=== PATIENT | female | born 1960 | race American Indian/Alaskan Native ===

== ENCOUNTER 2021-03-08 17:06 | Inpatient (IN) | payer MEDICAID ==
[2021-03-08] MEDS ORDERED: ASPIRIN 81 MG TAB CHEW PO ONE (19:25)
[2021-03-08 19:54] LABS: Basophils % (Auto) 0.6 % (0.0-1.8); Eosinophils % (Auto) 0.3 % (0.0-4.3); Hematocrit 39.6 % (30.3-42.9); Hemoglobin 13.5 gm/dl (10.1-14.3); Lymphocytes # (Auto) 1.6 K/mm3 (1.2-5.4); Lymphocytes % (Auto) 31.9 % (13.4-35.0); Mean Corpuscular HGB Conc 34 % (30-34); Mean Corpuscular Volume 93 fl (79-97); Monocytes # (Auto) 0.3 K/mm3 (0.0-0.8); Monocytes % (Auto) 6.2 % (0.0-7.3); Platelet Count 218 K/mm3 (140-440); Red Blood Count 4.28 M/mm3 (3.65-5.03); Red Cell Distribution Width 12.8 % (13.2-15.2)
[2021-03-08] MEDS ORDERED: MECLIZINE 25 MG TAB PO ONE (19:59)
[2021-03-08] MEDS ORDERED: SODIUM CHLORIDE 0.9% 1000 ML 1,000 ML IV ONE (19:59)
--- NOTE | 2021-03-08 20:03 | XRay Report ---
CHEST 2 VIEWS INDICATION / CLINICAL INFORMATION: Dizziness. COMPARISON: None available. FINDINGS: SUPPORT DEVICES: None. HEART / MEDIASTINUM: The heart size and pulmonary vasculature are normal. The aorta is normal in jessica miroslava. LUNGS / PLEURA: No significant pulmonary or pleural abnormality. No pneumothorax. ADDITIONAL FINDINGS: No significant additional findings. IMPRESSION: No acute findings. Signer Name: Cecil Enlge MD Signed: 03/08/2021 7:59 PM Workstation Name: [id number]
--- NOTE | 2021-03-08 20:04 | Emergency Department Report ---
ED General Adult HPI - General Chief complaint: Dizziness Stated complaint: HIGH BLOOD LIGHT HEADED DIZZY Time Seen by Provider: 03/08/21 19:20 Source: patient Mode of arrival: Wheelchair Limitations: No Limitations - History of Present Illness Initial comments: 60-year-old female patient with history of stroke and hypertension presents to the emergency department with complaints of dizziness starting today. Patient states the dizziness is intermittent, without exacerbating or relieving factors. Describes the dizziness as "feeling off-balance." The patient's granddaughter states that she has been using a wheelchair as needed since she suffered a stroke a few years ago. Today, patient has been more dependent on her wheelchair than usual. There have been no recent falls. Patient is not anticoagulated. States she has been eating and drinking normally. No known history of prior CT. No recent medication changes. Denies headache, seizure, syncope, chest pain, shortness of breath, palpitations, nausea, vomiting, diarrhea, lower extremity pain/swelling. Denies all other complaints at this time. - Related Data Allergies Allergy/AdvReac Type Severity Reaction Status Date / Time No Known Allergies Allergy Unverified 03/08/21 17:29 ED Review of Systems ROS: Stated complaint: HIGH BLOOD LIGHT HEADED DIZZY Other details as noted in HPI Other: GENERAL: Negative for fever, chills, weight change, anorexia, fatigue. ENT: Negative for ear pain, difficulty hearing, sore throat, nasal congestion, epistaxis. CARDIOVASCULAR: Negative for chest pain, palpitations, lower extremity swelling. PULMONARY: Negative for cough, dyspnea, wheezing, orthopnea, cyanosis. GASTROINTESTINAL: Negative for abdominal pain, nausea, vomiting, diarrhea, constipation. MUSCULOSKELETAL: Negative for joint pain, joint swelling, myalgias, back pain, neck pain. NEUROLOGICAL: Positive for dizziness. INTEGUMENTARY: Negative for erythema, rash, diaphoresis, laceration, ecchymosis. HEMATOLOGICAL: Negative for hemoptysis, hematemesis, hematochezia, hematuria. PSYCHIATRIC: Negative for hallucinations, suicidal ideation, homicidal ideation, anxiety, depression. ED Past Medical Hx - Past Medical History Previous Medical History?: Yes Hx Hypertension: Yes - Surgical History Past Surgical History?: No ED Physical Exam - General Limitations: No Limitations - Other Other exam information: General: Awake and alert. No acute distress. Head: Atraumatic, normocephalic. Eyes: EOMI. Pupils are equal and round, reactive to light, no nystagmus. Left eye deviates to the left, granddaughter states this is consistent with her baseline since her stroke. Normal sclera and conjunctiva. ENT: Oral mucosa is moist. Normal pharyngeal exam. Neck: Supple. No lymphadenopathy. Pulmonary: No respiratory distress. Clear to auscultation bilaterally. Cardiac: Regular rate and rhythm. Pulses are palpable and equal bilaterally. No lower extremity cyanosis or edema. Skin: Warm and dry. No rashes. Abdomen: Soft, non-tender, non-protuberant. No guarding, rigidity, or rebound. Bowel sounds are normal. No organomegaly or masses noted. Back: Normal alignment. No CVA tenderness. Extremities: Symmetrical. Full range of motion intact. Neurological: Alert and oriented, appropriately interactive, no focal deficits. Strength and sensation intact throughout. Oriented to person and place. Not oriented to time, unable to identify the month or year; granddaughter states "this is not something she usually keeps track of." Cranial nerves II through XII intact. Cerebellar finger-nose exam intact. Psych: Cooperative. Appropriate mood and affect. Speech is evenly metered. Thoughts are logically construed. ED Course Vital Signs 03/08/21 03/08/21 03/08/21 17:23 23:22 23:24 Temperature 98.4 F 98.3 F Pulse Rate 91 H 75 Pulse Rate [ 75 Lying] Respiratory 16 16 Rate Blood Pressure 168/98 Blood Pressure 149/82 [Lying] Blood Pressure 149/82 [Right] O2 Sat by Pulse 98 99 Oximetry ED Medical Decision Making - Lab Data Result diagrams: 03/08/21 19:31 03/08/21 19:31 - EKG Data 03/08/21 20:05 EKG shows normal sinus rhythm with a ventricular rate of 90 bpm. Normal axis. Normal CO interval. Normal QT interval. Good R wave progression. Lateral T wave inversion noted to aVL. No ST segment changes. Over read by attending emergency physician, who agrees with this interpretation. - Radiology Data [facility] [address] [place] [address] Cat Scan Report Signed Patient: JOSEPH TILLMAN MR#: [id number] : 1960 Acct:[id number] Age/Sex: 60 / F ADM Date: 03/08/21 Loc: ED Attending Dr: Ordering Physician: SAWYER HERNANDEZ Date of Service: 03/08/21 Procedure(s): CT head/brain wo con Accession Number(s): [id number] cc: SAWYER HERNANDEZ CT head without contrast HISTORY: dizziness/weakness/hx prior stroke. TECHNIQUE: Axial imaging performed from the skull apex through the skull base without the use of contrast. All CT scans at this location are performed using CT dose reduction for ALARA by means of automated exposure control. COMPARISON: None FINDINGS: Parenchyma: No acute intracranial hemorrhage or parenchymal abnormality. Periventricular hypodensities are likely in keeping with microangiopathy. Ventricles: There is mild diffuse brain atrophy with commensurate ventricular enlargement which is likely age appropriate. Soft tissues: Soft tissues including the orbits appear normal. Bones: No acute osseous abnormality. Sinuses: Sinuses and mastoid air cells are clear. IMPRESSION: No acute abnormality. Signer Name: Zachary Thornton MD Signed: 03/08/2021 10:06 PM Workstation Name: [id number] Transcribed By: BIN Dictated By: Zachary Thornton MD Electronically Authenticated By: Zachary Thornton MD Signed Date/Time: 03/08/212205 DD/ 04 TD/TT: - Medical Decision Making Differential diagnosis including but not limited to: stroke, intracranial hemorrhage, dehydration, electrode abnormality, hypoglycemia, anemia, urinary tract infection, orthostatic hypotension, peripheral vertigo, central vertigo Patient presents to the emergency department with complaints of dizziness starting today. She is afebrile and hemodynamically stable. She is unable to correctly identify the month or year. She has been more dependent on her wheelchair today than her baseline, per granddaughter. Patient was previously diagnosed with a stroke but is not currently on antiplatelet therapy or statins. There has been no recent trauma or fall. CT the head shows periventricular hypodensities, microangiopathy, and mild diffuse brain atrophy with ventricular enlargement. Laboratory evaluation is grossly unremarkable. No nystagmus, vomiting, vision changes, or cerebellar exam deficits to suggest acute vertebrobasilar artery occlusion. Dizziness and generalized weakness have been present for over 12 hours. Given the patient's history and questionable changes in mental status, patient will be admitted to the hospitalist service for further neurological evaluation including stroke work-up. Case discussed with hospitalist, who agrees to admit. Patient and granddaughter expressed understanding and are agreeable to plan of care. Critical care attestation.: If time is entered above; I have spent that time in minutes in the direct care of this critically ill patient, excluding procedure time. ED Disposition Clinical Impression: Dizziness, Generalized weakness, History of stroke Disposition: -09 OP ADMIT IP TO THIS HOSP Is pt being admited?: Yes Does the pt Need Aspirin: Yes Condition: Stable Time of Disposition: 00:00
[2021-03-08 20:06] LABS: Alanine Aminotransferase 10 units/L (7-56); Albumin 4.5 g/dL (3.9-5); BUN/Creatinine Ratio 11; Blood Urea Nitrogen 10 mg/dL (7-17); Calcium 9.4 mg/dL (8.4-10.2); Hemolysis Index 9
[2021-03-08 20:07] LABS: INR 1.02 (0.87-1.13)
[2021-03-08 20:08] LABS: Partial Thromboplastin Time 29.4 Sec. (24.2-36.6)
--- NOTE | 2021-03-08 22:11 | Cat Scan Report ---
CT head without contrast HISTORY: dizziness/weakness/hx prior stroke. TECHNIQUE: Axial imaging performed from the skull apex through the skull base without the use of con trast. All CT scans at this location are performed using CT dose reduction for ALARA by means of aut omated exposure control. COMPARISON: None FINDINGS: Parenchyma: No acute intracranial hemorrhage or parenchymal abnormality. Periventricular hypodensiti es are likely in keeping with microangiopathy. Ventricles: There is mild diffuse brain atrophy with commensurate ventricular enlargement which is l ikely age appropriate. Soft tissues: Soft tissues including the orbits appear normal. Bones: No acute osseous abnormality. Sinuses: Sinuses and mastoid air cells are clear. IMPRESSION: No acute abnormality. Signer Name: Zachary Thornton MD Signed: 03/08/2021 10:06 PM Workstation Name: [id number]
[2021-03-08 23:09] LABS: Bilirubin,Urine NEG (Negative); Blood,Urine NEG (Negative); Color,Urine Yellow (Yellow); Mucus,Urine FEW /HPF; Protein,Urine <15 mg/dL mg/dL (Negative); Urobilinogen,Urine < 2.0 mg/dL (<2.0)
--- NOTE | 2021-03-09 00:47 | History and Physical Report ---
History of Present Illness Date of examination: 03/09/21 Date of admission: 03/09/21 Chief complaint: AMS History of present illness: 60-year-old female patient with history of stroke and hypertension presents to the emergency department with complaints of dizziness starting today. Patient states the dizziness is intermittent, without exacerbating or relieving factors. Describes the dizziness as "feeling off-balance." The patient's granddaughter states that she has been using a wheelchair as needed since she suffered a stroke a few years ago. Today, patient has been more dependent on her wheelchair than usual. There have been no recent falls. Patient is not anticoagulated. States she has been eating and drinking normally. No known history of prior MT. No recent medication changes. Denies headache, seizure, syncope, chest pain, shortness of breath, palpitations, nausea, vomiting, diarrhea, lower extremity pain/swelling. Denies all other complaints at this time. ED work-up WBC 5.1, hemoglobin 13.5, platelets 218, sodium 141, potassium 3.6, c reatinine 0.9, and serum glucose 113. CT of the head done no acute finding checks x-ray done no acute finding. Patient seen in ED at bedside with granddaughter present. Patient reported dizziness weakness that has worsened but not in acute distress. Patient has a history of CVA with mild left facial drooping likely secondary to residual from CVA. Patient granddaughter said patient is weaker than she usually is and she feels dizzy and decided came to the hospital. I reviewed patient medication record, lab values, and vital signs. Echocardiogram, carotid ultrasound, and MRI of the brain ordered. Past History Past Medical History: hypertension, stroke Past Surgical History: No surgical history Social history: lives with family Family history: no significant family history Medications and Allergies Allergies Allergy/AdvReac Type Severity Reaction Status Date / Time No Known Allergies Allergy Unverified 03/08/21 17:29 Home Medications Medication Instructions Recorded Confirmed Last Taken Type amLODIPine 10 mg PO DAILY 03/09/21 03/09/21 Unknown History lisinopriL [Lisinopril] 20 mg PO DAILY 03/09/21 03/09/21 Unknown History Review of Systems Constitutional: weakness Ears, nose, mouth and throat: no epistaxis, no bleeding gums Gastrointestinal: no melena Integumentary: no pruritis, no redness, no blisters Psychiatric: confusion Hematologic/Lymphatic: no easy bruising, no easy bleeding Allergic/Immunologic: no urticaria Exam - Constitutional Vitals: Temp Pulse Resp BP Pulse Ox 98.3 F 75 16 149/82 99 03/08/21 23:24 03/08/21 23:24 03/08/21 23:24 03/08/21 23:24 03/08/21 23:24 General appearance: Present: no acute distress, well-nourished - EENT Eyes: Present: PERRL ENT: hearing intact, clear oral mucosa - Neck Neck: Present: supple, normal ROM - Respiratory Respiratory effort: normal Respiratory: bilateral: CTA - Cardiovascular Heart Sounds: Present: S1 & S2. Absent: rub, click - Extremities Extremities: pulses symmetrical, No edema Peripheral Pulses: within normal limits - Abdominal General gastrointestinal: Present: soft, non-tender, non-distended, normal bowel sounds Female genitourinary: Present: normal - Integumentary Integumentary: Present: clear, warm, dry - Musculoskeletal Musculoskeletal: gait normal, strength equal bilaterally - Psychiatric Psychiatric: appropriate mood/affect, intact judgment & insight - Neurologic Neurologic: CNII-XII intact, moves all extremities - Allied Health Allied health notes reviewed: nursing HEART Score - HEART Score Troponin: Troponin T < 0.010 ng/mL (0.00-0.029) 03/08/21 23:25 Results - Labs CBC & Chem 7: 03/08/21 19:31 03/08/21 19:31 Labs: Abnormal lab results 03/08/21 03/08/21 Range/Units 19:31 19:31 RDW 12.8 L (13.2-15.2) % Glucose 113 H (65-100) mg/dL Assessment and Plan - Patient Problems (1) Dizziness Current Visit: Yes Status: Acute Plan to address problem: Safety and fall precaution at all time Echocardiogram ordered follow-up with report Carotid ultrasound, MRI of the brain ordered PT OT consult (2) Generalized weakness Current Visit: Yes Status: Acute Plan to address problem: PT OT on consult follow-up with recommendation (3) History of stroke Current Visit: Yes Status: Acute Plan to address problem: History of CVA with left face weakness Continue antiplatelet and statin (4) Acute encephalopathy Current Visit: Yes Status: Acute Plan to address problem: ? cause Patient with Hx of CVA CT of the head no acute finding Check MRI-f/u with result (5) DVT prophylaxis Current Visit: Yes Status: Acute Plan to address problem: Lovenox
[2021-03-09] MEDS ORDERED: ONDANSETRON 4 MG/2 ML INJ IV PRN ×2 (00:52→01:00)
[2021-03-09] MEDS ORDERED: MORPHINE 2 MG/1 ML INJ IV PRN ×2 (00:52→01:00)
[2021-03-09] MEDS ORDERED: ACETAMINOPHEN 325 MG TAB PO PRN ×2 (00:52→01:00)
[2021-03-09] MEDS ORDERED: MAGNESIUM HYDROXIDE (MOM) ORAL LIQD UDC PO PRN (00:52)
[2021-03-09] MEDS ORDERED: METOCLOPRAMIDE 10 MG/2 ML INJ IV PRN (00:52)
[2021-03-09] MEDS ORDERED: ALUM-MAG HYDROXIDE-SIMETHICONE 200-200-20MG/5ML ORAL LIQD 30 ML PO PRN (00:52)
[2021-03-09] MEDS ORDERED: oxyCODONE /ACETAMINOPHEN 5-325MG TAB PO PRN (01:00)
[2021-03-09] MEDS ORDERED: hydrALAZINE 20 MG/1 ML INJ IV PRN ×3 (01:06→13:00)
[2021-03-09] MEDS: SODIUM CHLORIDE 0.9% 1000 ML 1,000 ML IV SCH (05:08)
[2021-03-09] MEDS: LISINOPRIL 20 MG TAB PO SCH (11:32)
[2021-03-09] MEDS: ENOXAPARIN 40 MG/0.4 ML INJ SUB-Q SCH (11:33)
[2021-03-09] MEDS: ASPIRIN EC 81 MG TAB PO SCH (11:33)
[2021-03-09] MEDS: SENNOSIDES 8.6 MG TAB PO SCH (11:33)
[2021-03-09] MEDS: amLODIPine 10 MG TAB PO SCH (11:34)
--- NOTE | 2021-03-09 16:00 | Event Note ---
Date: 03/09/21 patient seen and examined Patient still complains of dizziness Vitals noted and stable S1-S2 positive, clear to auscultate bilaterally, no lower extremity edema Tolerating diet 60-year-old female patient with history of stroke and hypertension presents to the emergency department with complaints of dizziness ED work-up WBC 5.1, hemoglobin 13.5, platelets 218, sodium 141, potassium 3.6, creatinine 0.9, and serum glucose 113. CT of the head done no acute finding checks x-ray done no acute finding. Patient has a history of CVA with mild left facial drooping likely secondary to residual from CVA. Patient admitted for stroke workup Echocardiogram, carotid ultrasound, and MRI of the brain ordered. Pending MRI brain study, cont current Mx and care --It took me about 28 minutes to reevaluate and reasses this patient, discussed with RN/CM, review medical documents, lab results, imaging, medication list and placing order.
[2021-03-09] MEDS ORDERED: PRAVASTATIN 20 MG TAB PO SCH (22:00)
[2021-03-10] MEDS: SODIUM CHLORIDE 0.9% 1000 ML 1,000 ML IV SCH (03:08)
[2021-03-10 08:49] LABS: Alanine Aminotransferase 6 units/L (7-56); Albumin 3.5 g/dL (3.9-5)
[2021-03-10 08:51] LABS: Bilirubin,Direct < 0.2 mg/dL (0-0.2)
--- NOTE | 2021-03-10 09:06 | Vascular Lab Report ---
"DUPLEX DOPPLER ULTRASOUND CAROTID, BILATERAL INDICATION / CLINICAL INFORMATION: dizziness. COMPARISON: None available. FINDINGS: RIGHT CAROTID: - PLAQUE ESTIMATE (%): < 50% - CCA velocity: 112 cm/sec. - ICA peak systolic velocity: 120 cm/sec. - ICA/CCA PSV Ratio: 1.3 Right Vertebral Artery: Antegrade flow. LEFT CAROTID: - PLAQUE ESTIMATE: < 50% - CCA velocity: 103 cm/sec. - ICA peak systolic velocity: 108 cm/sec. - ICA/CCA PSV Ratio: 1.1 Left Vertebral Artery: Antegrade flow. IMPRESSION: 1. Right Internal Carotid Artery: Less than 50% diameter stenosis. 2. Left Internal Carotid Artery: Less than 50% diameter stenosis. Velocity criteria are extrapolated from diameter data as defined by the Society of Radiologists in [facility] Consensus Conference, Radiology 2003; 229;340-346. Degree of || ICA PSV || Plaque || ICA/CCA Stenosis (%) || (cm/sec) || estimate (%) || PSV Ratio Normal ............. || ...<125........... || ...None......... || ...<2.0 <50................... || ...<125........... || ......<50......... || ...<2.0 50-69................ || ..125-230...... || ......>50......... || 2.0-4.0 >70 but <100... || >230.............. || .......>50........ || ...>4.0 Near occlusion || High/low/none || ...visible....... || variable Total occlusion || ....None........... || ..no lumen... || ....N/A Signer Name: Jay Means MD Signed: 03/10/2021 9:02 AM Workstation Name: [id number]"
--- NOTE | 2021-03-10 09:40 | Magnetic Resonance Report ---
MR brain wo con INDICATION / CLINICAL INFORMATION: 60 years Female; AMS, dizziness. TECHNIQUE: Multiplanar, multisequence MR images of the brain were obtained. COMPARISON: The study is compared to the earlier CT head of 03/08/2021. FINDINGS: BRAIN / INTRACRANIAL CONTENTS: There is extensive cerebral white matter disease which is nonspecific though may reflect microvascular angiopathy, advanced for the patient's age. The diffusion imaging re veals no evidence of acute infarction. There are foci of decreased signal within the cerebellum, most notable on the susceptibility weighted imaging and greater on the right measuring 6 mm. The findings would be indicative of chronic microhemorrhages. There is mild cerebral and cerebellar atrophy with associated prominence of the ventricular system. N o extra-axial fluid collections or significant mass effect is identified. 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 Mod erate to white matter changes are seen at within the bernard and left cerebellum. CRANIOCERVICAL JUNCTION: No significant abnormality. VASCULAR FLOW-VOIDS: No significant abnormality. ORBITS: No significant abnormality of visualized orbits. SINUSES / MASTOIDS: No significant abnormality in the visualized paranasal sinuses or mastoid air migel ls. ADDITIONAL FINDINGS: None. IMPRESSION: 1. There is extensive microvascular angiopathy as detailed above without evidence of acute infarction . Signer Name: Oscar Cline MD Signed: 03/10/2021 9:35 AM Workstation Name: [id number]
[2021-03-10] MEDS: ENOXAPARIN 40 MG/0.4 ML INJ SUB-Q SCH (10:24)
[2021-03-10] MEDS: SENNOSIDES 8.6 MG TAB PO SCH (10:24)
[2021-03-10] MEDS: LISINOPRIL 20 MG TAB PO SCH (10:24)
[2021-03-10] MEDS: ASPIRIN EC 81 MG TAB PO SCH (10:24)
[2021-03-10] MEDS: amLODIPine 10 MG TAB PO SCH (10:24)
--- NOTE | 2021-03-10 11:47 | Consultation ---
History of Present Illness Consult date: 03/10/21 Reason for Consult: Dizziness History of present illness: AMS History of present illness: 60-year-old female patient with history of stroke and hypertension presents to the emergency department with complaints of dizziness starting X2 days ago , Patient states the dizziness is intermittent, without exacerbating or relieving factors. Describes the dizziness as "feeling off-balance."get worse with standing up and walking , no dizziness while she is in bed , no hx of similar nature , no hx of vertigo no nausea no vomiting pt. is a very bad historian she is some what confused she is with significant memory difficulty The patient's granddaughter states that she has been using a wheelchair as needed since she suffered a stroke a few years ago. Today, patient has been more dependent on her wheelchair than usual. There have been no recent falls. pt. lives with her daughter , she is with hx of BP takes medications States she has been eating and drinking normally. No known history of prior MS. No recent medication changes. Denies headache, seizure, syncope, chest pain, shortness of breath, palpitations, nausea, vomiting, diarrhea, lower extremity pain/swelling. Denies all other complaints at this time. ED work-up WBC 5.1, hemoglobin 13.5, platelets 218, sodium 141, potassium 3.6, creatinine 0.9, and serum glucose 113. CT of the head done no acute finding checks x-ray done no acute finding. Patient seen in ED at bedside with granddaughter present. Patient reported dizziness weakness that has worsened but not in acute distress. Patient has a history of CVA with mild left facial drooping likely secondary to residual from CVA. Patient granddaughter said patient is weaker than she usually is and she feels dizzy and decided came to the hospital. I reviewed patient medication record, lab values, and vital signs. Echocardiogram, carotid ultrasound, and MRI of the brain ordered. Past History Past Medical History: hypertension, stroke Past Surgical History: No surgical history Social history: lives with family Family history: no significant family history Medications and Allergies Allergies Allergy/AdvReac Type Severity Reaction Status Date / Time No Known Allergies Allergy Unverified 03/08/21 17:29 Home Medications Medication Instructions Recorded Confirmed Last Taken Type amLODIPine 10 mg PO DAILY 03/09/21 03/09/21 Unknown History lisinopriL [Lisinopril] 20 mg PO DAILY 03/09/21 03/09/21 Unknown History Review of Systems Constitutional: weakness Ears, nose, mouth and throat: no epistaxis, no bleeding gums Gastrointestinal: no melena Integumentary: no pruritis, no redness, no blisters Psychiatric: confusion Hematologic/Lymphatic: no easy bruising, no easy bleeding Allergic/Immunologic: no urticaria Past History Past Medical History: hypertension, stroke Past Surgical History: No surgical history Social history: lives with family Family history: no significant family history Medications and Allergies Allergies Allergy/AdvReac Type Severity Reaction Status Date / Time No Known Allergies Allergy Unverified 03/08/21 17:29 Home Medications Medication Instructions Recorded Confirmed Last Taken Type amLODIPine 10 mg PO DAILY 03/09/21 03/09/21 Unknown History lisinopriL [Lisinopril] 20 mg PO DAILY 03/09/21 03/09/21 Unknown History Active Meds: Active Medications Acetaminophen (Acetaminophen 325 Mg Tab) 650 mg PO Q4H PRN PRN Reason: Pain MILD(1-3)/Fever >100.5/MCCARTY Al Hydrox/Mg Hydrox/Simethicone (Alum-Mag Hydroxide-Simethicone [phone]/5ml Oral Liqd 30 Ml) 30 ml PO Q4H PRN PRN Reason: Indigestion Amlodipine Besylate (Amlodipine 10 Mg Tab) 10 mg PO QDAY [facility] Last Admin: 03/10/21 10:24 Dose: 10 mg Documented by: Aspirin (Aspirin Ec 81 Mg Tab) 81 mg PO QDAY [facility] Last Admin: 03/10/21 10:24 Dose: 81 mg Documented by: Enoxaparin Sodium (Enoxaparin 40 Mg/0.4 Ml Inj) 40 mg SUB-Q DAILY [facility]; Protocol Last Admin: 03/10/21 10:24 Dose: 40 mg Documented by: Hydralazine HCl (Hydralazine 20 Mg/1 Ml Inj) 10 mg IV Q4H PRN PRN Reason: Hypertension Last Admin: 03/09/21 12:45 Dose: 10 mg Documented by: Sodium Chloride (Nacl 0.9% 1000 Ml) 1,000 mls @ 42 mls/hr IV DIRECT AYDE Last Admin: 03/10/21 03:08 Dose: 42 mls/hr Documented by: Lisinopril (Lisinopril 20 Mg Tab) 20 mg PO QDAY [facility] Last Admin: 03/10/21 10:24 Dose: 20 mg Documented by: Magnesium Hydroxide (Magnesium Hydroxide (Mom) Oral Liqd Udc) 30 ml PO Q4H PRN PRN Reason: Constipation Metoclopramide HCl (Metoclopramide 10 Mg/2 Ml Inj) 10 mg IV Q6H PRN PRN Reason: Nausea And Vomiting Last Admin: 03/09/21 11:29 Dose: 10 mg Documented by: Morphine Sulfate (Morphine 2 Mg/1 Ml Inj) 2 mg IV Q4H PRN PRN Reason: Pain, Moderate (4-6) Ondansetron HCl (Ondansetron 4 Mg/2 Ml Inj) 4 mg IV Q8H PRN PRN Reason: Nausea And Vomiting Oxycodone/Acetaminophen (Oxycodone /Acetaminophen 5-325mg Tab) 1 tab PO Q6H PRN PRN Reason: Pain, Moderate (4-6) Pravastatin Sodium (Pravastatin 20 Mg Tab) 20 mg PO QHS [facility] Last Admin: 03/09/21 22:56 Dose: 20 mg Documented by: Senna (Sennosides 8.6 Mg Tab) 8.6 mg PO DAILY [facility] Last Admin: 03/10/21 10:24 Dose: 8.6 mg Documented by: Sodium Chloride (Sodium Chloride 0.9% 10 Ml Flush Syringe) 10 ml IV BID [facility] Last Admin: 03/10/21 10:25 Dose: 10 ml Documented by: Sodium Chloride (Sodium Chloride 0.9% 10 Ml Flush Syringe) 10 ml IV PRN PRN PRN Reason: LINE FLUSH Last Admin: 03/09/21 11:32 Dose: 10 ml Documented by: Physical Examination - Vital Signs Vital Signs: Vital Signs Temp Pulse Resp BP Pulse Ox 98.4 F 91 H 16 168/98 98 03/08/21 17:23 03/08/21 17:23 03/08/21 17:23 03/08/21 17:23 03/08/21 17:23 - Constitutional General appearance: comfortable - EENT EENT: Present: PERRL, mucous membranes moist - Respiratory Respiratory: Present: chest non-tender, lungs clear - Cardiovascular Cardiovascular: Present: regular rate, normal S1, normal S2 Extremities: Present: no peripheral edema bilatateraly, no clubbing, cyanosis - Gastrointestinal Gastrointestinal: Present: normoactive bowel sounds - Integumentary Integumentary: Present: normal - Neurologic Cranial nerve examination: PERRL, EOMI, intact Speech examination: intact Sensorimotor examination: intact Detailed motor examination: grossly full strength in Cerebellar examination: other (she is alert sluggish to answear question d isoriented to place and date , does not knows the president name , knows her birthdate but had difficulty with her age , can not remmeber her address ) Results - Laboratory Findings CBC and BMP: 03/08/21 19:31 03/08/21 19:31 Abnormal Lab Findings: Abnormal Labs 03/08/21 03/08/21 03/10/21 19:31 19:31 07:43 RDW 12.8 L Glucose 113 H ALT 6 L Total Protein 5.4 L D Albumin 3.5 L Assessment and Plan Assessment and Plan - Patient Problems # Dizziness -this is 60 ys old femal complains of being dizzy unsteady on ambulation on going for the last two days , she denied fall -findings from Hx and exam is suggestive of possible orthostatic and or fluctuating BP -No sign of CVA no focal weakness is appreciated -CT/MRI brain are unremarkable ,no acute event is noted -US carotid is unremarkable -Echo showed EF#60-65% -check for orthostatic changes is pending -cardiac monitering # Generalized weakness -PT/ OT on consult follow-up with recommendation # Hypertension -BP at time 180/99 possible hypertensive emergency -? compling with medication -confusion -maintain BP <150/80 # History of stroke -History of CVA with no significant focal weakness is appreciated -confusion /dementia -Continue antiplatelet and statin -LDL -ESR,AUGUSTINA ,VDRL -UDS # Acute encephalopathy/ underlying significant dementia !!! -Patient with Hx of CVA -CT/MRI brain of the head no acute finding - DVT prophylaxis -Lovenox will follow
--- NOTE | 2021-03-10 14:01 | Discharge Summary ---
Providers - Providers Date of Admission: 03/10/21 08:27 Date of discharge: 03/10/21 Attending physician: VIRGILIO RAMIREZ 03/09/21 00:52 Occupational Therapy Evaluate and Treat [CONS] Routine Comment: Reason For Exam: Neuro deficits Physical Therapy Evaluation and Treat [CONS] Routine Comment: Reason For Exam: Neuro deficits 03/10/21 10:48 Consult to Physician [CONS] Routine Comment: Consulting Provider: FLORENTIN REYES Physician Instructions: Reason For Exam: dizziness Primary care physician: DATA PROGRAMMER Hospitalization Condition: Stable Pertinent studies: CXR head CT Carotid doppler Brain MRI 2d echocardiogram Hospital course: 60-year-old female patient with history of stroke and hypertension presents to the emergency department with complaints of dizziness ED work-up WBC 5.1, hemoglobin 13.5, platelets 218, sodium 141, potassium 3.6, creatinine 0.9, and serum glucose 113. CT of the head done no acute finding checks x-ray done no acute finding. Patient has a history of CVA with mild left facial drooping likely secondary to residual from CVA. Patient admitted for stroke workup Echocardiogram, carotid ultrasound, and MRI of the brain ordered. MRI showed no acute CVA, 2D echocardiogram showed preserved EF, carotid ultrasound showed no significant stenosis Patient noted to have uncontrolled hypertension and BP medications were adjusted Patient also assess for orthostatic hypotension but findings were normal Neurology was consulted and recommended further outpatient follow-up with cardiac monitoring Patient was then discharged home in stable condition with outpatient follow-up after PT clearance. Disposition: [id number] HOME UNDER HOME [facility] Final Discharge Diagnosis (Prints w/discharge instructions): --Dizziness likely due to uncontrolled blood pressure. --Generalized weakness. --Hypertension, uncontrolled. --History of CVA. --Encephalopathy likely due to underlying significant dementia Time spent for discharge: 34 minutes Core Measure Documentation - Palliative Care Palliative Care/ Comfort Measures: Not Applicable - Core Measures Any of the following diagnoses?: history only Exam - Physical Exam Narrative exam: General appearance: comfortable - EENT EENT: Present: PERRL, mucous membranes moist - Respiratory Respiratory: Present: chest non-tender, lungs clear - Cardiovascular Cardiovascular: Present: regular rate, normal S1, normal S2 Extremities: Present: no peripheral edema bilatateraly, no clubbing, cyanosis - Gastrointestinal Gastrointestinal: Present: normoactive bowel sounds - Integumentary Integumentary: Present: normal - Neurologic Cranial nerve examination: PERRL, EOMI, intact Speech examination: intact Sensorimotor examination: intact Detailed motor examination: grossly full strength in Cerebellar examination: other (she is alert sluggish to answear question disoriented to place and date , does not knows the president name , knows her birthdate but had difficulty with her age , can not remmeber her address ) - Constitutional Vitals: Temp Pulse Resp BP Pulse Ox 98.3 F 71 18 146/76 99 03/10/21 11:12 03/10/21 11:12 03/10/21 11:12 03/10/21 11:12 03/10/21 11:12 Plan Activity: fall precautions Weight Bearing Status: Weight Bear as Tolerated Diet: other (pureed diet) Special Instructions: record daily BP diary Follow up with: PRIMARY CARE, [Primary Care Provider] - 3-5 Days PAN FOSTRE MD [Staff Physician] - 7 Days Prescriptions: Pravastatin [Pravachol] 20 mg PO QHS #30 tablet amLODIPine 10 mg PO QDAY #30 tablet Aspirin EC [Halfprin EC] 81 mg PO QDAY #30 tablet lisinopriL [Zestril TAB] 20 mg PO QDAY #30 tablet
--- NOTE | 2021-03-10 16:40 | Magnetic Resonance Report ---
MR MRA/MRV head wo con INDICATION / CLINICAL INFORMATION: multiCVA. TECHNIQUE: MRA of the head. 3-D/MIP reformats postprocessed. Percentage stenosis is determined by direct quantit ative measurements of distal internal carotid artery diameter compared with normal reference segments or by criteria similar to NASCET where applicable. COMPARISON: MRI brain 03/10/2021 FINDINGS: MRA HEAD: Intracranial vertebral arteries: No occlusion or significant stenosis. Basilar artery: No occlusion or significant stenosis. Posterior cerebral arteries: No occlusion or significant stenosis. Intracranial internal carotid arteries: No occlusion or significant stenosis. Anterior cerebral arteries: No occlusion or significant stenosis. Middle cerebral arteries: No occlusion or significant stenosis. No aneurysm. Additional findings: None. IMPRESSION: 1. No occlusion or significant stenosis of the major intracranial vasculature. Signer Name: Sergio Prince MD Signed: 03/10/2021 4:35 PM Workstation Name: [id number]
[2021-03-10 17:34] VITALS: BP 165/80
--- NOTE | 2021-03-10 17:55 | Electrocardiograph Report ---
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
--- NOTE | 2021-03-10 17:55 | Electrocardiograph Report ---
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
[2021-03-11 01:16] LABS: Chol/HDL Ratio 3.03 %
[2021-03-12 22:41] LABS: ANA Screen, IFA Negative (Negative)
== END 2021-03-10 18:50 | disposition home or self-care (01) | DRG 304 ==
LOC: ED 17:06 → 3A 03-09 01:00 → OBSVTOIN 03-10 08:27
PROVIDERS: ADMIT Internal Medicine Geriatric Medicine; ATTEND Internal Medicine
DX: I10 Essential (primary) hypertension (principal); G93.40 Encephalopathy, unspecified; R42 Dizziness and giddiness; Z86.73 Personal history of transient ischemic attack (TIA), and cerebral infarction without residual deficits; Z79.899 Other long term (current) drug therapy; Z79.891 Long term (current) use of opiate analgesic; Z79.01 Long term (current) use of anticoagulants; F03.90 Unspecified dementia, unspecified severity, without behavioral disturbance, psychotic disturbance, mood disturbance, and anxiety
CPT/HCPCS: 36415; 70450; 70544; 70551; 71046; 80053; 80061; 80076; 81001; 82607; 83735; 84443; 84484; 85025; 85610; 85652; 85730; 86038; 86592; 93005; 93306; 93880; G0378; A9270-GY; J0360; J1650; J2765; J7030

== ENCOUNTER 2022-02-13 22:12 | Emergency (ER) | payer MEDICAID ==
[2022-02-13 22:20] VITALS: BP 187/102
== END 2022-02-14 06:20 | disposition left against medical advice (07) ==
LOC: ED 22:12
DX: I10 Essential (primary) hypertension (principal); Z53.21 Procedure and treatment not carried out due to patient leaving prior to being seen by health care provider